=== PATIENT | female | born 1980 | race African-American/Black ===

== ENCOUNTER 2019-06-19 09:15 | Emergency (ER) | payer MEDICAID ==
[~2019-06-19] VITALS: Ht 157.5 cm; Wt 74.8 kg
[2019-06-19 09:22] VITALS: BP 150/99
[2019-06-19 09:44] LABS: Urine Bacteria MANY /hpf (None Seen); Urine Blood Negative /uL (Negative); Urine Mucus FEW (None Seen); Urine Specific Gravity 1.007 (1.001-1.035); Urine WBC 47 /hpf (0 - 5)
[2019-06-19] MEDS ORDERED: PHENAZOPYRIDINE HCL 100 MG TAB PO ONE (10:00)
== END 2019-06-19 10:34 | disposition home or self-care (01) ==
LOC: ER 09:19
DX: N39.0 Urinary tract infection, site not specified (principal); Z88.0 Allergy status to penicillin
CPT/HCPCS: 81001; 81025